=== PATIENT | male | born 1980 | race Caucasian/White ===

== ENCOUNTER 2017-07-23 10:47 | Emergency (ER) | payer OTHER ==
[~2017-07-23] VITALS: Ht 175.3 cm; Wt 82.4 kg
[~2017-07-23 10:47] MED LIST: ACET-1256 PO; IBUP-1050 PO
[2017-07-23 10:49] VITALS: TEMP 36.8; Ht 175.3 cm; Wt 82.4 kg
[2017-07-23] MEDS ORDERED: ONDANSETRON INJ 2 MG/ML 2 ML VIAL IV STA (11:12)
[2017-07-23] MEDS ORDERED: LIDOCAINE/EPINEPH/TETRACAINE 1 EA SYR EXT STA (11:12)
[2017-07-23] MEDS ORDERED: SODIUM CHLORIDE 0.9% 1000ML 1,000 ML IV STA (11:12)
[2017-07-23] MEDS ORDERED: ACETAMINOPHEN 500 MG TAB PO STA (11:12)
--- NOTE | 2017-07-23 11:28 | EMERGENCY ROOM VISIT NOTE ---
ED Visit Note First contact with patient: 11:03 CHIEF COMPLAINT: Head injury HISTORY OF PRESENT ILLNESS: This 36-year-old male sent to the emergency department with complaint of head injury that occurred at approximately 7:30 AM today. The patient states that he was doing a "kip up," in which he was lying on the floor quick motion to stand up onto his feet. The patient states when he went to jump up off the floor, he struck forehead on the coffee table. He reports positive loss of consciousness, unsure of duration. He notes a laceration above his right eye, bleeding controlled prior to arrival. He states that he tried to eat breakfast, and vomited twice. He has been nauseated , dizzy, and sweating. He has a bilateral frontal headache that he describes as a pressure, worse with lying down, better with sitting up, 7/10. He did not take any medications for his headache. He denies any neck pain, vision changes , confusion, difficulty with speech, weakness or numbness of the extremities, chest pain, shortness of breath. He denies any other associated injuries. REVIEW OF SYSTEMS: A complete 10 point review of systems was reviewed with the patient with pertinent positives and negatives as per history of present illness. All else were negative. PMH: The patient is healthy; there is no significant medical or surgical history. SOCIAL HISTORY: Patient lives at home. Non-smoker, no excessive alcohol use. He does chew snuff. PHYSICAL EXAM: CONSTITUTIONAL: No acute distress, but appears anxious and in pain. Diaphoretic. Alert and oriented X 4 with normal affect. HEENT: Normocephalic. Laceration of the right eyebrow with surrounding contused tissue, bleeding controlled. Tender to palpation, no skull depression or crepitus palpated. There are no deep structures such as tendons, nerves, blood vessels, or exposed bone noted within the laceration. PERRL, EOMI. TMs normal, no hemotympanum. Pharynx normal. NECK: Supple, full active range of motion without discomfort. RESPIRATORY: Clear to auscultation bilaterally with no wheezing, crackles, rhonchi or stridor. Equal expansion bilaterally. CARDIOVASCULAR: Regular rate and rhythm with no murmurs, rubs or gallops. Normal peripheral perfusion. No edema. GASTROINTESTINAL: Soft, nontender, nondistended. Bowel sounds present in all quadrants. MUSCULOSKELETAL: Full range of motion of all joints without discomfort. INTEGUMENTARY: No rash or other significant dermatologic conditions noted. NEUROLOGIC: Cranial nerves II-XII grossly intact. No focal neurologic deficits noted. Normal strength, normal sensation, normal speech, normal gait, normal finger nose finger testing and negative Romberg. IMAGING: CT SCAN OF THE BRAIN WITHOUT IV CONTRAST CLINICAL HISTORY: Head injury. COMPARISON STUDY: No priors. TECHNIQUE: Unenhanced axial CT scan of the brain is performed from the vertex to the skull base. A dose lowering technique was utilized adhering to the principles of ALARA. CT DOSE: 537.48 mGy.cm FINDINGS: Brain parenchyma: The brain parenchyma is normal in appearance. There is no hemorrhage, mass effect, or evidence of acute territorial ischemia by CT criteria. Davidson-white matter is preserved. A calcification is incidentally noted in the left frontal white matter matter. There is a 7 mm left-sided choroid fissure cyst. No extra-axial fluid collection is seen. Ventricles, sulci, cisterns: Normal in configuration. Intracranial vasculature: The visualized intracranial vasculature at the skull base is normal in appearance. Calvarium: There is no depressed calvarial fracture. Sinuses and mastoids: There is mucosal thickening within air-fluid level in the left maxillary antrum. The remaining visualized paranasal sinuses are clear. The mastoid air cells are well pneumatized. Orbits: There is questionable discontinuity of the left orbital floor. The right bony orbit appears intact. IMPRESSION: 1. No acute intracranial abnormality. 2. There is questionable discontinuity of the left orbital floor which is not well assessed on this study. Fluid is seen in the left maxillary antrum. Consider a CT scan of the facial bones if there is clinical concern for left orbital fracture. EMERGENCY DEPARTMENT COURSE: I examined the patient. Patient is alert and oriented, noted to be diaphoretic and appears to be in pain. Differential diagnosis includes laceration, abrasion, contusion, skull fracture, intracranial hemorrhage, concussion, among others. Basic labs were performed and are unremarkable. IV placed, IV fluids given for hydration and IV Zofran for nausea. Tylenol given for headache. A noncontrast CT scan of the head is negative for any acute abnormalities. There is a slight discontinuity noted of the left orbital floor, this is the opposite side of patient's injury today. Patient denies any recent injury to the left side of his face, any sinus congestion or sinus infection symptoms, or other concerns for possible injury to the left orbital floor. I discussed the option of doing an additional CT of the facial bones to further evaluate, the patient does not wish to do this, stating he is not concerned about this finding. I did instruct him on symptoms of concern and to follow-up with his PCP or in the emergency department for any of these, he verbalized understanding. Verbal consent was obtained to perform the procedure. The facial laceration was cleaned with Betadine and sterile saline and there was minimal bleeding. The laceration was anesthetized locally with 1% lidocaine with epinephrine, with good results. Once the wound was fully anesthetized, it was further explored and as described above. The edges of the laceration gape apart. Using 5-0 Vicryl, two subcuticular stitches were placed to approximate the edges of the wound. Once the wound edges were approximated, this was then secured with 3 layers of Dermabond glue with good wound approximation. The patient tolerated the procedure well. The patient was instructed on all discharge instructions and plan for follow-up. He reports he is much improved after Tylenol and Zofran. He is tolerating PO well. The patient was discharged home in stable condition. I discussed the patient with Dr. Dowling, who agrees with my assessment and plan. Current/Historical Medications No Active Prescriptions or Reported Meds Allergies Coded Allergies: No Known Allergies (Unverified , 07/23/17) Vital Signs Date Time Temp Pulse Resp B/P (MAP) Pulse Ox O2 Delivery O2 Flow Rate FiO2 07/23/17 14:00 92 18 147/107 97 07/23/17 12:50 88 18 139/79 99 Room Air 07/23/17 12:02 90 16 124/70 98 Room Air 07/23/17 10:49 36.8 100 16 143/79 100 Room Air Laboratory Results 07/23/17 11:35 Red Blood Count 4.72, Mean Corpuscular Volume 90.9, Mean Corpuscular Hemoglobin 31.6, Mean Corpuscular Hemoglobin Concent 34.7, Mean Platelet Volume 9.0, Neutrophils (%) (Auto) 64.1, Lymphocytes (%) (Auto) 23.5, Monocytes (%) (Auto) 9.9, Eosinophils (%) (Auto) 1.5, Basophils (%) (Auto) 0.6, Neutrophils # (Auto) 7.81, Lymphocytes # (Auto) 2.87, Monocytes # (Auto) 1.21, Eosinophils # (Auto) 0.18, Basophils # (Auto) 0.07 07/23/17 11:35 Test 07/23/17 11:35 White Blood Count 12.19 K/uL (4.8-10.8) Red Blood Count 4.72 M/uL (4.7-6.1) Hemoglobin 14.9 g/dL (14.0-18.0) Hematocrit 42.9 % (42-52) Mean Corpuscular Volume 90.9 fL (80-100) Mean Corpuscular Hemoglobin 31.6 pg (25-34) Mean Corpuscular Hemoglobin Concent 34.7 g/dl (32-36) Platelet Count 316 K/uL (130-400) Mean Platelet Volume 9.0 fL (7.4-10.4) Neutrophils (%) (Auto) 64.1 % Lymphocytes (%) (Auto) 23.5 % Monocytes (%) (Auto) 9.9 % Eosinophils (%) (Auto) 1.5 % Basophils (%) (Auto) 0.6 % Neutrophils # (Auto) 7.81 K/uL (1.4-6.5) Lymphocytes # (Auto) 2.87 K/uL (1.2-3.4) Monocytes # (Auto) 1.21 K/uL (0.11-0.59) Eosinophils # (Auto) 0.18 K/uL (0-0.5) Basophils # (Auto) 0.07 K/uL (0-0.2) RDW Standard Deviation 45.3 fL (36.4-46.3) RDW Coefficient of Variation 13.7 % (11.5-14.5) Immature Granulocyte % (Auto) 0.4 % Immature Granulocyte # (Auto) 0.05 K/uL (0.00-0.02) Anion Gap 6.0 mmol/L (3-11) Est Creatinine Clear Calc Drug Dose 127.0 ml/min Estimated GFR () 133.7 Estimated GFR (Non- 115.4 BUN/Creatinine Ratio 12.3 (10-20) Calcium Level 9.5 mg/dl (8.5-10.1) Medications Administered Medications (Trade) Dose Ordered Sig/Cruz Route Start Time Stop Time Status Last Admin Dose Admin Ondansetron HCl (Zofran Inj) 4 mg NOW STAT IV 07/23/17 11:12 07/23/17 11:16 DC 07/23/17 11:22 4 MG Sodium Chloride 1,000 ml @ 999 mls/hr Q1H1M STAT IV 07/23/17 11:12 07/23/17 12:12 DC 07/23/17 11:24 999 MLS/HR Acetaminophen (Tylenol Tab) 1,000 mg NOW STAT PO 07/23/17 11:12 07/23/17 11:16 DC 07/23/17 11:23 1,000 MG Tetracaine/ Epinephrine/ Lidocaine (L.e.t. Gel 4%/ 1:100/0.5%) 1 ea UD STAT EXT 07/23/17 11:12 07/23/17 11:16 DC 07/23/17 11:23 1 EA Departure Information Impression Primary Impression: Laceration of right eyebrow Additional Impression: Concussion Dispostion Home / Self-Care Condition GOOD Prescriptions No Active Prescriptions or Reported Meds Referrals No Doctor, Assigned (PCP) Patient Instructions ED Concussion, ED Laceration Facial Skin Glue, [employer] Additional Instructions Keep wound clean and dry. Do not apply any lotions, soaps, or ointments over the glued area, as this can cause the glue dissolve too early. The glue should follow off on its own in the next 5-7 days as the wound heals. You may apply ice to the area for swelling and pain. Ibuprofen 600 mg or Tylenol 1000 mg every 8 hrs as needed for pain. Keep covered when in sun until sutures removed then SPF 50 or higher for one year. Vitamin E oil if desired two weeks after suture removal for reduction of scar. You most likely have a mild concussion. It is important to observe both physical and cognitive rest while recovering from a concussion. Physical rest includes no significant physical activity or exertion, heavy lifting over 10 pounds, and increasing sleep and nap times throughout the day as needed. Cognitive rest includes taking breaks from prolonged screen time including TV, tablets, phone, or prolonged periods of talking on the telephone or reading. You should relax in a quiet, dark place for the rest of the day. Avoid any possible triggers including: cigarette smoke, caffeine, nicotine, chocolate, wine, beer, loud noises or music, or bright lights. Follow-up with your PCP in the next few days to be rechecked. Please seek immediate medical attention for any signs of infection (increasing redness, swelling, pus drainage, streaking up the arm, fever/chills). Please return to the ER for any worsening symptoms, including severe worsening headache, persistent vomiting, vision changes, confusion, numbness or weakness on one side of the body, balance issues or difficulty walking, or any other concerns. Problem Qualifiers Primary Impression: Laceration of right eyebrow Encounter type: initial encounter Qualified Codes: S01.111A - Laceration without foreign body of right eyelid and periocular area, initial encounter Additional Impression: Concussion Encounter type: initial encounter Loss of consciousness presence/duration: with LOC of 30 min or less Qualified Codes: S06.0X1A - Concussion with loss of consciousness of 30 minutes or less, initial encounter
[2017-07-23 11:52] LABS: BASO % 0.6 %; BASO ABS # 0.07 K/uL (0-0.2); COMPLETE YES; EOS % 1.5 %; HEMATOCRIT 42.9 % (42-52); IG% 0.4 %; LYMPH % 23.5 %; LYMPH ABS # 2.87 K/uL (1.2-3.4); MEAN CELL VOLUME 90.9 fL (80-100); MEAN CORPUSCULAR HEMOGLOBIN 31.6 pg (25-34); MEAN CORPUSCULAR HGB CONC 34.7 g/dl (32-36); MONO % 9.9 %; NEUT % 64.1 %; PLATELET COUNT 316 K/uL (130-400); RED BLOOD COUNT 4.72 M/uL (4.7-6.1); WHITE BLOOD COUNT 12.19 K/uL (4.8-10.8)
[2017-07-23 12:11] LABS: BUN/CREATININE RATIO 12.3 (10-20); CALCIUM 9.5 mg/dl (8.5-10.1); CREATININE 0.82 mg/dl (0.60-1.40)
--- NOTE | 2017-07-23 12:53 | DIAGNOSTIC IMAGING REPORT ---
CT SCAN OF THE BRAIN WITHOUT IV CONTRAST CLINICAL HISTORY: Head injury. COMPARISON STUDY: No priors. TECHNIQUE: Unenhanced axial CT scan of the brain is performed from the vertex to the skull base. A dose lowering technique was utilized adhering to the principles of ALARA. CT DOSE: 537.48 mGy.cm FINDINGS: Brain parenchyma: The brain parenchyma is normal in appearance. There is no hemorrhage, mass effect, or evidence of acute territorial ischemia by CT criteria. Davidson-white matter is preserved. A calcification is incidentally noted in the left frontal white matter matter. There is a 7 mm left-sided choroid fissure cyst. No extra-axial fluid collection is seen. Ventricles, sulci, cisterns: Normal in configuration. Intracranial vasculature: The visualized intracranial vasculature at the skull base is normal in appearance. Calvarium: There is no depressed calvarial fracture. Sinuses and mastoids: There is mucosal thickening within air-fluid level in the left maxillary antrum. The remaining visualized paranasal sinuses are clear. The mastoid air cells are well pneumatized. Orbits: There is questionable discontinuity of the left orbital floor. The right bony orbit appears intact. IMPRESSION: 1. No acute intracranial abnormality. 2. There is questionable discontinuity of the left orbital floor which is not well assessed on this study. Fluid is seen in the left maxillary antrum. Consider a CT scan of the facial bones if there is clinical concern for left orbital fracture. Electronically signed by: Ventura Vela M.D. 07/23/2017 12:51 PM Dictated Date/Time: 07/23/2017 12:44 PM
[2017-07-23] MEDS ORDERED: LIDO/EPINEPHRINE/SOD BICARB 20 ML VIAL INFIL ONE (13:10)
[2017-07-23] MEDS ORDERED: LIDOCAINE/EPINEPHRINE 1% 20 ML VIAL INFIL ONE (13:15)
[2017-07-23 14:00] VITALS: BP 147/107; PULSE 92; O2SAT 97
== END 2017-07-23 14:02 | disposition home or self-care (01) ==
LOC: C.EDB 10:50 → C.EDC 14:02
DX: S01.111A Laceration without foreign body of right eyelid and periocular area, initial encounter (principal); S06.0X1A Concussion with loss of consciousness of 30 minutes or less, initial encounter; W22.8XXA Striking against or struck by other objects, initial encounter; F17.200 Nicotine dependence, unspecified, uncomplicated

== ENCOUNTER 2023-05-15 14:50 | Inpatient (IN) ==
[2023-05-15] MEDS ORDERED: ACETAMINOPHEN 1,000 MG/100 ML VIAL IV STA (16:01)
[2023-05-15] MEDS ORDERED: KETOROLAC TROMETHAMINE 15 MG/ML VIAL IV STA ×2 (16:01→20:25)
[2023-05-15] MEDS ORDERED: AMPICILLIN/SULBACTAM SOD 3,000 MG in 0.9 % SODIUM CHLORIDE 100 ML IV STA (16:06)
[2023-05-15] MEDS ORDERED: SODIUM CHLORIDE 0.9% 1000ML 1,000 ML IV SCH ×2 (16:15→20:30)
--- NOTE | 2023-05-15 16:16 | Emergency Department Note ---
Impression & Plan Periorbital cellulitis, Abscess of left upper eyelid, Leukocytosis ED Provider Note NAME: RATNA NATARAJAN JR AGE: 42 SEX: M ARRIVES VIA: Walk-In INFORMANT: Patient ED PROVIDER(S): Warren Dowling MD CHIEF COMPLAINT: Eyelid infection PLAN: Disposition: Admit MEDICAL DECISION MAKING: The patient is a pleasant 42-year-old gentleman who denies any medical conditions who presents to the emergency department via walk-in, accompanied by his partner for evaluation of worsening left eye pain and swelling with yellow discharge that acutely worsened this morning in the setting of having progressive redness swelling and irritation since Wednesday. Patient [place] in [place] and went under tree branches where he may have been scratched though he is not certain. He reports intermittently applying a warm towel but symptoms have continued to worsen. He denies any fevers, cough, congestion, chest pain, shortness of breath, GI or symptoms. On arrival to the emergency department the patient is comfortable, afebrile with heart rate in the 90s, blood pressure 150s/90s and vital signs otherwise stable. Patient has notable/severe left upper eyelid swelling, erythema, warmth, induration and tenderness and extension of erythema circumferentially in the left periorbital region. There is a punctate track draining purulence. Gross examination of the patient's eye demonstrates scant injection without overt chemosis. Extraocular muscles are intact. WBC, 14.3K with neutrophil predominance. H/H and platelets within normal limits. Chemistry without metabolic acidosis. Electrolytes LFTs unremarkable. CT scan of the face was obtained and demonstrates findings consistent with a preseptal/periorbital cellulitis without orbital involvement. Case was discussed with ophthalmology on-call, Dr Rehman, who did not feel he could provide recommendations as he felt the patient's findings were outside of his scope. Case was discussed with Dr. Greer, [facility] surgery, who reviewed CT images. Appreciate consultation and recommendations and given cellulitis is limited to preseptal region agrees with plan for admission to medicine service for IV antibiotics. The patient's eyelid/abscess did spontaneously decompress and the patient felt and appeared improved. I did attempt additional decompression with 25-gauge needle through the existing tract and only minimal purulence was obtained but sent for culture. Treatment had been initiated emergency department with IV Unasyn. Case was discussed with Lacho Montoya hospitalist who will evaluate the patient for admission. Triage Nursing notes reviewed and agree them. Prior/outside medical records reviewed Vital Signs: reviewed Differential diagnosis: Conjunctivitis, trauma, corneal abrasion, hyphema, glaucoma, iritis, corneal ulcer, dendrite, CRAO, CRVO, vitreous detachment, retinal detachment, as well as other pathologies. ER treatment provided: See below. Diagnostics interpreted by me: ECG: Normal sinus rhythm, 67 bpm, no ectopy, no overt ST elevation or depression, QTc 4371, QRS 86. Cardiac Monitoring: An order for continuous cardiac monitoring was placed and demonstrated normal sinus rhythm, 67 bpm, no ectopy. Laboratory studies: See below Imaging studies: See below Consultation(s): Dr. Greer, [facility]. [facility] HPI: The patient is a pleasant 42-year-old gentleman who denies any medical conditions who presents to the emergency department via walk-in, accompanied by his partner for evaluation of worsening left eye pain and swelling with yellow discharge that acutely worsened this morning in the setting of having progressive redness swelling and irritation since Wednesday. Patient reports he was in [place] in a kayak and went under tree branches where he may have been scratched though he is not certain. He reports intermittently applying a warm towel but symptoms have continued to worsen. He denies any fevers, cough, congestion, chest pain, shortness of breath, GI or symptoms. ROS: See above HPI for pertinent positives & negatives. A total of 10 systems reviewed and were otherwise negative. VITALS:See Below PHYSICAL EXAMINATION: GENERAL: Awake, alert, uncomfortable-appearing, in no distress HENT: Normocephalic, atraumatic. Oropharynx unremarkable. EYES: Notable/severe left upper eyelid swelling, erythema, warmth, induration and tenderness and extension of erythema circumferentially in the left periorbital region. There is a punctate track draining purulence. Gross examination of the patient's eye demonstrates scant injection without overt chemosis. Extraocular muscles are intact. NECK: Supple. No nuchal rigidity. FROM. No JVD. RESPIRATORY: Clear to auscultation. CARDIAC: Regular rate, normal rhythm. Extremities warm and well perfused. Pulses equal. ABDOMEN: Soft, non-distended. No tenderness to palpation. No rebound or guarding. No masses. RECTAL: Deferred. MUSCULOSKELETAL: Chest examination reveals no tenderness. The back is sy mmetrical on inspection without obvious abnormality. There is no CVA tenderness to palpation. No joint edema. LOWER EXTREMITIES: Calves are equal size bilaterally and non-tender. No edema. No discoloration. NEURO: Normal sensorium. No sensory or motor deficits noted. SKIN: No rash or jaundice noted. Warren Dowling MD Past Med/Surg History Medical History No significant past medical history Family History Other Family history non-contributory Social History Smoking Status: Never smoker Preferred Language: Divehi Feels Safe at Home: Yes Allergies Allergies Allergy/AdvReac Type Severity Reaction Status Date / Time No Known Allergies Allergy Verified 05/15/23 15:58 Home Meds Home Medications Medication Instructions Recorded Confirmed No Known Home Medications 05/07/20 05/15/23 Results & Data (ED) Vital Signs Vital Signs - 24 hr 05/15/23 14:58 05/15/23 16:50 05/15/23 16:50 Temperature 37.0 C Temperature Source Temporal Artery Scan Pulse Rate 97 H Pulse Rate [Finger] 78 Respiratory Rate 20 20 Respiratory Effort / Characteristics Non-Labored Spontaneous Respiratory Depth Normal Blood Pressure 155/90 H Blood Pressure [Right Arm] 141/78 H Blood Pressure Mean 111 Blood Pressure Mean [Right Arm] 99 Pulse Oximetry 95 100 96 Oxygen Delivery Method Room Air Room Air Room Air Sepsis Recent Fever Within 48 Hours No Sepsis New/Unexplained Change in Mental Status N/A Sepsis Action Taken by Nursing No Action Required 05/15/23 20:52 Temperature Temperature Source Pulse Rate Pulse Rate [Finger] 85 Respiratory Rate 18 Respiratory Effort / Characteristics Respiratory Depth Normal Blood Pressure Blood Pressure [Right Arm] 138/101 H Blood Pressure Mean Blood Pressure Mean [Right Arm] 113 Pulse Oximetry 97 Oxygen Delivery Method Room Air Sepsis Recent Fever Within 48 Hours Sepsis New/Unexplained Change in Mental Status Sepsis Action Taken by Nursing Laboratory Data Attestation: I reviewed the patient's lab results. 05/15/23 16:19 05/15/23 16:19 Lab Results 05/15/23 05/15/23 Range/Units 16:19 16:19 WBC 14.32 H (4.8-10.8) K/ul RBC 5.35 (4.70-6.10) M/uL Hgb 16.4 (14.0-18.0) g/dl Hct 47.9 (42.0-52.0) % MCV 89.5 (80.0-100.0) fL MCH 30.7 (25.0-34.0) pg MCHC 34.2 (32.0-36.0) g/dL RDW Std Deviation 51.8 H (36.4-46.3) fL RDW Coeff of Mariano 15.9 H (11.5-14.5) % Plt Count 398 (130-400) K/uL MPV 9.3 L (9.4-12.4) fL Immature Gran % (Auto) 1.0 % Neut % (Auto) 72.5 % Lymph % (Auto) 14.7 % B[place] % (Auto) 9.4 % Eos % (Auto) 1.7 % Baso % (Auto) 0.7 % Neut # (Auto) 10.38 H (1.40-6.50) K/uL Lymph # (Auto) 2.10 (1.2-3.4) K/uL Borden # (Auto) 1.34 H (0.11-0.59) K/uL Eos # (Auto) 0.25 (0-0.50) K/uL Baso # (Auto) 0.10 (0-0.2) K/uL Immature Gran # (Auto) 0.15 (0.01-0.20) K/uL Sodium 138 (136-145) mmol/L Potassium 4.4 (3.5-5.1) mmol/L Chloride 106 (98-107) mmol/L Carbon Dioxide 26 (21-32) mmol/L Anion Gap 6 (3-11) BUN 13 (6-23) mg/dl Creatinine 0.98 (0.6-1.4) mg/dl Est Cr Clr Drug Dosing 129.1 ml/min Est GFR ( Amer) 111.3 ml/min Est GFR (Non-Af Amer) 96.1 ml/min BUN/Creatinine Ratio 13.3 (10-20) Glucose 116 H (70-99(Fasting)) mg/dl Calcium 9.4 (8.6-10.3) mg/dl Total Bilirubin 0.4 (0.2-1.0) mg/dl AST 37 (13-39) U/L ALT 24 (7-52) U/L Alkaline Phosphatase 37 (34-104) U/L Total Protein 6.8 (6.0-8.3) gm/dl Albumin 3.6 (3.4-5.0) gm/dl Globulin 3.2 (2.5-4.0) gm/dl Albumin/Globulin Ratio 1.1 (0.9-2) Administered Medications Sodium Chloride (Nss 1000ml) 1,000 mls @ 100 mls/hr IV .Q10H ONE Stop: 05/16/23 06:38 Last Admin: 05/15/23 20:48 Dose: 100 mls/hr Documented By: JULIEN Discontinued Medications Sodium Chloride (Nss 1000ml) 1,000 mls @ 999 mls/hr IV .Q1H1M LION Stop: 05/15/23 17:15 Last Infusion: 05/15/23 17:36 Dose: 0 mls/hr Documented By: Admin: 05/15/23 16:17 Dose: 999 mls/hr Documented By: KT Acetaminophen (Ofirmev) 1,000 mg in 100 mls @ 400 mls/hr IV NOW STA Stop: 05/15/23 16:15 Last Infusion: 05/15/23 16:36 Dose: 0 mls/hr Documented By: Admin: 05/15/23 16:18 Dose: 400 mls/hr Documented By: KT Ampicillin Sodium/Sulbactam Sodium 3,000 mg/ Sodium Chloride 108 mls @ 200 mls/hr IV NOW STA; Protocol Stop: 05/15/23 16:38 Last Infusion: 05/15/23 17:05 Dose: 0 mls/hr Documented By: Admin: 05/15/23 16:36 Dose: 200 mls/hr Documented By: KT Ioversol (Optiray 320 100ml) 88 ml IV ONCE ONE Stop: 05/15/23 17:04 Last Admin: 05/15/23 17:03 Dose: 88 ml Documented By: RAMONITA Ketorolac Tromethamine (Ketorolac Tromethamine 15 Mg/Ml Vial) 15 mg IV NOW STA Stop: 05/15/23 16:02 Last Admin: 05/15/23 16:17 Dose: 15 mg Documented By: KT Ketorolac Tromethamine (Ketorolac Tromethamine 15 Mg/Ml Vial) 15 mg IV NOW STA Stop: 05/15/23 20:26 Last Admin: 05/15/23 20:48 Dose: 15 mg Documented By: HH Morphine Sulfate (Morphine Sulfate 4 Mg/Ml 1 Ml Carp\Vial) Confirm Administered Dose 4 mg .ROUTE .STK-MED ONE Stop: 05/15/23 20:12 Last Admin: 05/15/23 20:15 Dose: Not Given Documented By: ARS Morphine Sulfate (Morphine Sulfate 4 Mg/Ml 1 Ml Carp\Vial) 4 mg IV NOW STA Stop: 05/15/23 20:16 Last Admin: 05/15/23 20:16 Dose: 4 mg Documented By: HUGO Trimethoprim/Sulfamethoxazole (Sulfamethoxazole/Trimethoprim Ds 800/160mg Tab) 1 tab PO NOW ONE Stop: 05/15/23 20:38 Last Admin: 05/15/23 20:48 Dose: 1 tab Documented By: JULIEN Imaging Data Radiologist's Impression: Face CT 05/15/23 16:01 CT SCAN OF THE FACIAL BONES WITH IV CONTRAST CLINICAL HISTORY: Left left eye infection. Blepharitis. COMPARISON STUDY: No priors. TECHNIQUE: High-resolution CT scan of the facial bones is performed following the IV administration of 80 cc of Optiray 320. Images are reviewed in the axial, sagittal, and coronal planes. IV contrast was administered without complication. A dose lowering technique was utilized adhering to the principles of ALARA. FINDINGS: The skeletal structures are well mineralized. There is no evidence of facial bone fracture. The bony orbits are intact and the orbital contents are within normal limits. The zygomatic arches, nasal bones, and pterygoid plates are preserved. The maxilla and mandible are intact. There are no layering blood products within the paranasal sinuses. There is near-complete opacification of the left maxillary antrum. There is moderate to advanced mucosal thickening within the left ethmoid sinuses. Mild mucosal thickening is noted in the right maxillary antrum, the right ethmoid sinuses, the frontal sinuses, and the sphenoid sinuses. The left ostiomeatal complex is occluded. The right ostiomeatal complex is significantly narrowed by mucosal thickening. The mastoid air cells are well pneumatized. The visualized calvarium and upper cervical spine are maintained. Partially imaged brain parenchyma is within normal limits. The developmental venous anomaly is incidentally noted in the left frontal lobe. A tiny metallic foreign body seen at the dermal surface in the soft tissues the right chin on axial image #139. There is left periorbital soft tissue edema consistent with cellulitis. There is also mild mild left premalar and supraorbital soft tissue edema. A small phlegmon/developing abscess is suggested in the region of the left palpebra on image #108. This measures 1.2 x 0.9 cm. IMPRESSION: 1. There is evidence of left orbital/periorbital cellulitis as above. 2. There is a 1.2 cm left palpebral phlegmon/developing abscess. 3. Orbital contents are normal as imaged. 4. Pansinus disease as above, greatest in the left maxillary antrum. 5. No acute facial bone abnormality is seen. 6. A tiny metallic foreign body is seen at the dermal surface in the soft tissues of the right chin. ACT 112: Negative or not required by law. Electronically signed by: Ventura Vela M.D. 05/15/2023 6:27 PM Discharge Plan Visit Data Chief Complaint: Eye Pain Stated Complaint: LT EYE SWOLLEN AND RED ED Provider: Warren Dowling Discharge Problem: Periorbital cellulitis, Abscess of left upper eyelid, Leukocytosis Forms Stand Alone Forms: My [facility] [place] [facility] [place] Prescriptions Prescriptions: No Action No Known Home Medications Referrals Referrals: PCP,NO [Physician] -
[2023-05-15 16:38] LABS: Basophils % (auto) 0.7 %; Eosinophils # (auto) 0.25 K/uL (0-0.50); Eosinophils % (auto) 1.7 %; Hematocrit (blood only) 47.9 % (42.0-52.0); Hemoglobin 16.4 g/dl (14.0-18.0); Immature Granulocytes # (auto) 0.15 K/uL (0.01-0.20); Lymphocytes % (auto) 14.7 %; Mean Corpuscular Hemoglobin 30.7 pg (25.0-34.0); Mean Corpuscular Hgb Conc 34.2 g/dL (32.0-36.0); Mean Corpuscular Volume 89.5 fL (80.0-100.0); Mean Platelet Volume 9.3 fL (9.4-12.4); Monocytes # (auto) 1.34 K/uL (0.11-0.59); Monocytes % (auto) 9.4 %; Neutrophils # (auto) 10.38 K/uL (1.40-6.50); Neutrophils % (auto) 72.5 %; Platelet Count 398 K/uL (130-400); RDW Coefficient of Variation 15.9 % (11.5-14.5); RDW Standard Deviation 51.8 fL (36.4-46.3); Red Blood Count 5.35 M/uL (4.70-6.10); White Blood Count 14.32 K/ul (4.8-10.8)
[2023-05-15 16:51] LABS: Albumin Globulin Ratio 1.1 (0.9-2); Albumin Level 3.6 gm/dl (3.4-5.0); BUN Creatinine Ratio 13.3 (10-20); Bilirubin,Total 0.4 mg/dl (0.2-1.0); Calcium 9.4 mg/dl (8.6-10.3); Creatinine Clr Calc Pharmacy 129.1 ml/min; Est GFR (African American) 111.3 ml/min; Est GFR (Non-African American) 96.1 ml/min; Globulin 3.2 gm/dl (2.5-4.0); Potassium 4.4 mmol/L (3.5-5.1); Total Protein 6.8 gm/dl (6.0-8.3)
[2023-05-15] MEDS ORDERED: OPTIRAY 320 100ml IV ONE (17:03)
--- NOTE | 2023-05-15 18:29 | CT Scan Report ---
CT SCAN OF THE FACIAL BONES WITH IV CONTRAST CLINICAL HISTORY: Left left eye infection. Blepharitis. COMPARISON STUDY: No priors. TECHNIQUE: High-resolution CT scan of the facial bones is performed following the IV administration of 80 cc of Optiray 320. Images are reviewed in the axial, sagittal, and coronal planes. IV contrast was administered without complication. A dose lowering technique was utilized adhering to the princi ples of ALARA. FINDINGS: The skeletal structures are well mineralized. There is no evidence of facial bone fracture. The bony orbits are intact and the orbital contents are within normal limits. The zygomatic arches, nasal bones, and pterygoid plates are preserved. The maxilla and mandible are intact. There are no la yering blood products within the paranasal sinuses. There is near-complete opacification of the left maxillary antrum. There is moderate to advanced mucosal thickening within the left ethmoid sinuses. M ild mucosal thickening is noted in the right maxillary antrum, the right ethmoid sinuses, the frontal sinuses, and the sphenoid sinuses. The left ostiomeatal complex is occluded. The right ostiomeatal c omplex is significantly narrowed by mucosal thickening. The mastoid air cells are well pneumatized. T he visualized calvarium and upper cervical spine are maintained. Partially imaged brain parenchyma is within normal limits. The developmental venous anomaly is incidentally noted in the left frontal lob e. A tiny metallic foreign body seen at the dermal surface in the soft tissues the right chin on axia l image #139. There is left periorbital soft tissue edema consistent with cellulitis. There is also m ild mild left premalar and supraorbital soft tissue edema. A small phlegmon/developing abscess is sug gested in the region of the left palpebra on image #108. This measures 1.2 x 0.9 cm. IMPRESSION: 1. There is evidence of left orbital/periorbital cellulitis as above. 2. There is a 1.2 cm left palpebral phlegmon/developing abscess. 3. Orbital contents are normal as imaged. 4. Pansinus disease as above, greatest in the left maxillary antrum. 5. No acute facial bone abnormality is seen. 6. A tiny metallic foreign body is seen at the dermal surface in the soft tissues of the right chin. ACT 112: Negative or not required by law. Electronically signed by: Ventura Vela M.D. 05/15/2023 6:27 PM
[2023-05-15] MEDS ORDERED: MoRPHine SULFATE 4 MG/ML 1 ML CARP\\VIAL ONE (20:11)
[2023-05-15] MEDS ORDERED: MoRPHine SULFATE 4 MG/ML 1 ML CARP\\VIAL IV STA (20:15)
[2023-05-15] MEDS ORDERED: SULFAMETHOXAZOLE/TRIMETHOPRIM DS 800/160MG TAB PO ONE (20:37)
--- NOTE | 2023-05-15 20:38 | History & Physical Report ---
Date of Service May 15, 2023 Assessment & Plan (1) Periorbital cellulitis: Plan: With history of trauma No sepsis for now GERD, stable off maintenance medications hyperglycemia rule out DM GMF CS, Vancomycin, Cefepime Maxillofacial surgery consult RE left periorbital cellulitis (ER provider already in touch with Dr. Greer.) N.p.o. after midnight until patient seen by OMFS in a.m. anticipation of procedure Check hemoglobin A1c DVT prophylaxis. SCDs Re: Possible procedure Recommend pharmacologic anticoagulation with Lovenox 40 mg subcutaneous daily once bleeding risk is deemed to be minimal and negligible pending OMFS evaluation. Full code Text document was generated using [employer] voice recognition software. It may contain grammatical or spelling errors. Kindly contact undersigned for clarification of any documentation item in question. History of Present Illness Chief Complaint: Left upper eyelid swelling Primary Care Provider: Chris Willoughby MD History obtained from patient, family, and records. Medical history significant for GERD, chronic back pain. Last confinement 2013 for exudative tonsillopharyngitis status post antibiotic Rx. 5 days ago, patient noted left upper eyelid swelling. Possible injury after getting into some bushes while kayaking with girlfriend. Progressive painful left upper eyelid swelling with purulent drainage noted at home. Vision problems from not being able to fully open left eye. No headache, no chest pain, no SOB. IV Unasyn administered at the ER. Medical History as above Surgical History : Left knee surgery Family History : No DM, no hypertension Personal/Social history : Non-smoker, occasional EtOH intake, tree doctor Allergies Allergy/AdvReac Type Severity Reaction Status Date / Time No Known Allergies Allergy Verified 05/15/23 15:58 Home Medications Medication Instructions Recorded Confirmed Type No Known Home Medications 05/07/20 05/15/23 History Past Med/Surg History Medical History No significant past medical history Family History Other Family history non-contributory Social History Smoking Status: Never smoker Second Hand Exposure: No; Do You Dip or Chew Tobacco: Yes; Tobacco Cessation Education Requested by Patient: No Hx Alcohol Use: Yes Alcohol type: beer Hx Substance Use: Yes Last Used Substance: Hours (ago) Preferred Language: Setswana Communication Ability: Effective 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 Beliefs That Will Affect Care: None Current Living Situation: Other Current Living Situation Comment: Friend Feels Safe at Home: Yes Safety Concerns: Feels Safe At This Time Assistive Devices: None Review of Systems Review of Systems: As per HPI, all other systems reviewed and negative Physical Exam Physical Exam: GENERAL: Comfortable, pleasant, morbidly obese, no respiratory distress SKIN: Normal color, warm HEENT: [place] palpebral conjunctivae, L ptosis secondary to tender left upper eyelid swelling, moist buccal mucosa NECK : Supple, short neck, no tenderness CHEST : CTA, no tenderness HEART : RRR, no obvious murmurs ABDOMEN: Some distention, nontender EXTREMITIES : No LE swelling/tenderness, no other conspicuous deformities noted NEUROLOGIC : Coherent, no facial asymmetry, no other gross focality Results & Data Results & Data Vital Signs (Past 12 Hours) Vital Signs Temp Pulse Pulse Resp BP BP Pulse Ox 05/15/23 16:50 78 20 141/78 H 96 05/15/23 16:50 100 05/15/23 14:58 37.0 C 97 H 20 155/90 H 95 O2 Del Method 05/15/23 16:50 Room Air 05/15/23 16:50 Room Air 05/15/23 14:58 Room Air Laboratory Results Laboratory Results WBC 14.32 K/ul (4.8-10.8) H 05/15/23 16:19 RBC 5.35 M/uL (4.70-6.10) 05/15/23 16:19 Hgb 16.4 g/dl (14.0-18.0) 05/15/23 16:19 Hct 47.9 % (42.0-52.0) 05/15/23 16:19 MCV 89.5 fL (80.0-100.0) 05/15/23 16:19 MCH 30.7 pg (25.0-34.0) 05/15/23 16:19 MCHC 34.2 g/dL (32.0-36.0) 05/15/23 16:19 RDW Std Deviation 51.8 fL (36.4-46.3) H 05/15/23 16:19 RDW Coeff of Mariano 15.9 % (11.5-14.5) H 05/15/23 16:19 Plt Count 398 K/uL (130-400) 05/15/23 16:19 MPV 9.3 fL (9.4-12.4) L 05/15/23 16:19 Immature Gran % (Auto) 1.0 % 05/15/23 16:19 Neut % (Auto) 72.5 % 05/15/23 16:19 Lymph % (Auto) 14.7 % 05/15/23 16:19 Walton % (Auto) 9.4 % 05/15/23 16:19 Eos % (Auto) 1.7 % 05/15/23 16:19 Baso % (Auto) 0.7 % 05/15/23 16:19 Neut # (Auto) 10.38 K/uL (1.40-6.50) H 05/15/23 16:19 Lymph # (Auto) 2.10 K/uL (1.2-3.4) 05/15/23 16:19 Walton # (Auto) 1.34 K/uL (0.11-0.59) H 05/15/23 16:19 Eos # (Auto) 0.25 K/uL (0-0.50) 05/15/23 16:19 Baso # (Auto) 0.10 K/uL (0-0.2) 05/15/23 16:19 Immature Gran # (Auto) 0.15 K/uL (0.01-0.20) 05/15/23 16:19 Sodium 138 mmol/L (136-145) 05/15/23 16:19 Potassium 4.4 mmol/L (3.5-5.1) 05/15/23 16:19 Chloride 106 mmol/L (98-107) 05/15/23 16:19 Carbon Dioxide 26 mmol/L (21-32) 05/15/23 16:19 Anion Gap 6 (3-11) 05/15/23 16:19 BUN 13 mg/dl (6-23) 05/15/23 16:19 Creatinine 0.98 mg/dl (0.6-1.4) 05/15/23 16:19 Est Cr Clr Drug Dosing 129.1 ml/min 05/15/23 16:19 Est GFR ( Amer) 111.3 ml/min 05/15/23 16:19 Est GFR (Non-Af Amer) 96.1 ml/min 05/15/23 16:19 BUN/Creatinine Ratio 13.3 (10-20) 05/15/23 16:19 Glucose 116 mg/dl (70-99(Fasting)) H 05/15/23 16:19 Calcium 9.4 mg/dl (8.6-10.3) 05/15/23 16:19 Total Bilirubin 0.4 mg/dl (0.2-1.0) 05/15/23 16:19 AST 37 U/L (13-39) 05/15/23 16:19 ALT 24 U/L (7-52) 05/15/23 16:19 Alkaline Phosphatase 37 U/L (34-104) 05/15/23 16:19 Total Protein 6.8 gm/dl (6.0-8.3) 05/15/23 16:19 Albumin 3.6 gm/dl (3.4-5.0) 05/15/23 16:19 Globulin 3.2 gm/dl (2.5-4.0) 05/15/23 16:19 Albumin/Globulin Ratio 1.1 (0.9-2) 05/15/23 16:[address] 05/15/23 16:01 CT SCAN OF THE FACIAL BONES WITH IV CONTRAST CLINICAL HISTORY: Left left eye infection. Blepharitis. COMPARISON STUDY: No priors. TECHNIQUE: High-resolution CT scan of the facial bones is performed following the IV administration of 80 cc of Optiray 320. Images are reviewed in the axial, sagittal, and coronal planes. IV contrast was administered without complication. A dose lowering technique was utilized adhering to the principles of ALARA. FINDINGS: The skeletal structures are well mineralized. There is no evidence of facial bone fracture. The bony orbits are intact and the orbital contents are within normal limits. The zygomatic arches, nasal bones, and pterygoid plates are preserved. The maxilla and mandible are intact. There are no layering blood products within the paranasal sinuses. There is near-complete opacification of the left maxillary antrum. There is moderate to advanced mucosal thickening within the left ethmoid sinuses. Mild mucosal thickening is noted in the right maxillary antrum, the right ethmoid sinuses, the frontal sinuses, and the sphenoid sinuses. The left ostiomeatal complex is occluded. The right ostiomeatal complex is significantly narrowed by mucosal thickening. The mastoid air cells are well pneumatized. The visualized calvarium and upper cervical spine are maintained. Partially imaged brain parenchyma is within normal limits. The developmental venous anomaly is incidentally noted in the left frontal lobe. A tiny metallic foreign body seen at the dermal surface in the soft tissues the right chin on axial image #139. There is left periorbital soft tissue edema consistent with cellulitis. There is also mild mild left premalar and supraorbital soft tissue edema. A small phlegmon/developing abscess is suggested in the region of the left palpebra on image #108. This measures 1.2 x 0.9 cm. IMPRESSION: 1. There is evidence of left orbital/periorbital cellulitis as above. 2. There is a 1.2 cm left palpebral phlegmon/developing abscess. 3. Orbital contents are normal as imaged. 4. Pansinus disease as above, greatest in the left maxillary antrum. 5. No acute facial bone abnormality is seen. 6. A tiny metallic foreign body is seen at the dermal surface in the soft tissues of the right chin. ACT 112: Negative or not required by law. Electronically signed by: Ventura Vela M.D. 05/15/2023 6:27 PM
[2023-05-15] MEDS ORDERED: SODIUM CHLORIDE 0.9% 1000ML 1,000 ML IV ONE (20:39)
[2023-05-15] MEDS ORDERED: KETOROLAC TROMETHAMINE 15 MG/ML VIAL IV PRN (20:43)
[2023-05-15] MEDS ORDERED: traMADol HCL 50 MG TABLET PO PRN (20:43)
[2023-05-15] MEDS ORDERED: PROMETHAZINE HCL 12.5 MG in SODIUM CHLORIDE 0.9% 50 ML IV PRN (20:43)
[2023-05-15] MEDS ORDERED: ACETAMINOPHEN 325 MG TAB PO PRN ×2 (20:43→22:21)
[2023-05-15] MEDS ORDERED: LORazepam 0.5 MG TAB PO PRN (20:43)
[2023-05-15 21:27] LABS: Estimated Average Glucose 94 mg/dl; Hemoglobin A1C 4.9 % (4.5-5.6)
[2023-05-15] MEDS ORDERED: AMPICILLIN/SULBACTAM SOD 3,000 MG in 0.9 % SODIUM CHLORIDE 100 ML IV SCH (23:00)
[2023-05-16] MEDS ORDERED: VANCOMYCIN CONSULT ACTIVE PRN (00:51)
[2023-05-16] MEDS ORDERED: VANCOMYCIN HCL 2,500 MG in SODIUM CHLORIDE 0.9% 500 ML IV ONE (01:00)
[2023-05-16] MEDS ORDERED: VANCOMYCIN HCL 2,750 MG in SODIUM CHLORIDE 0.9% 500 ML IV ONE (01:00)
[2023-05-16] MEDS: CEFEPIME 2,000 MG in SYRINGE 0 ML IV SCH ×2 (01:08→07:48)
--- NOTE | 2023-05-16 08:46 | Oral/Maxillofacial Consult ---
Date of Consultation May 16, 2023 Assessment & Plan (1) Periorbital cellulitis: (2) Abscess of left upper eyelid: History of Present Illness Attending Physician: Pradip Lizarraga MD History of Present Illness Medical history significant for GERD, chronic back pain. Progressive painful left upper eyelid swelling with purulent drainage noted at home. IV Unasyn administered at the ER. Developed a left preseptal abscessed upper lid. Started after he as scratched while boating a few days ago. 5 days ago, patient noted left upper eyelid swelling. Possible injury after getting into some bushes while kayaking with girlfriend. Yesterday eye upper eyelid started to drain slightly and he went to ED. CT scan shows pre-sepal lesion Some spontaneous drainage but today still drainage upon palpation. Ideally a wider drainage is needed. No issues with vision, good ROM. CT SCAN OF THE FACIAL BONES WITH IV CONTRAST CLINICAL HISTORY: Left left eye infection. Blepharitis. FINDINGS: The skeletal structures are well mineralized. There is no evidence of facial bone fracture. The bony orbits are intact and the orbital contents are within normal limits. The zygomatic arches, nasal bones, and pterygoid plates are preserved. The maxilla and mandible are intact. There are no layering blood products within the paranasal sinuses. There is near-complete opacification of the left maxillary antrum. There is moderate to advanced mucosal thickening within the left ethmoid sinuses. Mild mucosal thickening is noted in the right maxillary antrum, the right ethmoid sinuses, the frontal sinuses, and the sphenoid sinuses. The left ostiomeatal complex is occluded. The right ostiomeatal complex is significantly narrowed by mucosal thickening. The mastoid air cells are well pneumatized. The visualized calvarium and upper cervical spine are maintained. Partially imaged brain parenchyma is within normal limits. The developmental venous anomaly is incidentally noted in the left frontal lobe. A tiny metallic foreign body seen at the dermal surface in the soft tissues the right chin on axial image #139 There is left periorbital soft tissue edema consistent with cellulitis. There is also mild mild left premalar and supraorbital soft tissue edema. A small phlegmon/developing abscess is suggested in the region of the left palpebra on image #108. This measures 1.2 x 0.9 cm. IMPRESSION: 1. There is evidence of left orbital/periorbital cellulitis as above. 2. There is a 1.2 cm left palpebral phlegmon/developing abscess. 3. Orbital contents are normal as imaged. 4. Pansinus disease as above, greatest in the left maxillary antrum. 5. No acute facial bone abnormality is seen. 6. A tiny metallic foreign body is seen at the dermal surface in the soft tissues of the right chin. Plan OR for I&D, warm compresses and then OK for discharge on oral antibiotics. I reviewed the procedure of upper eyelid I&D pain, infection, bleeding, swelling, need for follow up, revision, persistent swelling of upper lip secondary to scaring or lymph drainage. Consent signed All questions answered. OK for procedure today Allergies Allergy/AdvReac Type Severity Reaction Status Date / Time No Known Allergies Allergy Verified 05/15/23 15:58 Home Medications Medication Instructions Recorded Confirmed Type No Known Home Medications 05/07/20 05/15/23 History Patient History Medical History No significant past medical history Family History Other Family history non-contributory Social History Smoking Status: Never smoker Second Hand Exposure: No; Do You Dip or Chew Tobacco: Yes; Tobacco Cessation Education Requested by Patient: No Hx Alcohol Use: Yes Alcohol type: beer Hx Substance Use: Yes Last Used Substance: Hours (ago) Preferred Language: Turkish Communication Ability: Effective Systems Testing Laboratory Technician Required: No Beliefs That Will Affect Care: None Current Living Situation: Other Current Living Situation Comment: Friend Feels Safe at Home: Yes Safety Concerns: Feels Safe At This Time Assistive Devices: None Review of Systems Eyes: + eye pain gross swelling upper left lid, drainage noted, conjunctive inflamed. Physical Exam Constitutional: Physical Exam Constitutional WD/WN, vitals as above Eyes PERRL, conjunctivae red and swollen left side, right normal, preseptal swelling, pus extrudes upon palpation I&D needed to open up space for further drainage. Neck trachea midline, no thyromegaly Respiratory normal respiratory effort, lungs clear to auscultation Auscultation: lungs clear to auscultation bilaterally Cardiovascular RRR, no murmur, no edema Rate/Rhythm: regular rate and regular rhythm Skin no rashes, warm and dry, noted redness and swelling upper left lid and supraorbital area Neurologic PERRL, EOMI, accommodation nl, no face palsy, no dysarthria Cranial Nerves: sense of smell intact, PERRL, normal accommodation, EOM intact bilaterally, normal facial strength, tongue midline, normal gag reflex, normal hearing, able to rotate head bilaterally, able to elevate shoulders bilaterally, no nystagmus and symmetric palate elevation Psychiatric A+Ox3, euthymic affect Orientation: cooperative Lymphatic no cervical or axillary lymphadenopathy Results & Data Vital Signs (Past 12 Hours) Vital Signs Temp Pulse Resp BP Pulse Ox O2 Del Method 05/16/23 07:45 36.8 C 72 16 169/80 H 97 Room Air 05/15/23 22:20 36.7 C 77 18 132/75 98 Room Air 05/15/23 20:52 85 18 138/101 H 97 Room Air PG Care Time/CCT Total # of Minutes Spent Total Time Spent with Patient: Total time spent is greater than 50% in coordination of care (as documented) at patient's floor/unit and/or counseling patient: Coding Level of Care Code 29080 IN/OBS CONSULT LVL 2,35M Diagnoses Periorbital cellulitis L03.213 Abscess of left upper eyelid H00.034
[2023-05-16] MEDS ORDERED: SULFAMETHOXAZOLE/TRIMETHOPRIM DS 800/160MG TAB PO SCH (09:00)
[2023-05-16] MEDS ORDERED: ENOXAPARIN INJ 40 MG/0.4 ML SYR SQ SCH (09:00)
--- NOTE | 2023-05-16 11:07 | Ophthalmology Consultation ---
Date of Consultation May 16, 2023 Assessment & Plan (1) Periorbital cellulitis: 1. Left upper eyelid preseptal cellulitis and abscess: The patient was seen by Dr. Greer who plans to take the patient to the operating room later today for a more definitive incision and drainage procedure. In the ED, he received IV ampicillin/sulbactam and vancomycin as well as oral trimethoprim/sulfamethoxazole. He is currently getting IV vancomycin and cefepime while on the floor which is appropriate at this point. His eye exam including dilation shows no evidence of orbital involvement at this time. I do agree with Dr. Greer's plan for surgical debridement. He does not need any prescription eye medications at this time, but if he does have some eye irritation he can use some [id number] artificial tears. I would be happy to follow him as an outpatient once he is discharged. (2) Abscess of left upper eyelid: as above History of Present Illness Reason for Consultation: Left upper eyelid swelling with concern for orbital cellulitis Requesting Physician: Pradip Lizarraga MD Attending Physician: Pradip Lizarraga MD History of Present Illness This is a 42-year-old male with a past medical history of GERD and chronic back pain who presented yesterday to the [facility] emergency department with a 5 to 6-day history of worsening swelling and pain of the left upper eyelid. He is unsure but he thinks his symptoms may have started after he went kayaking last weekend and may have inadvertently scratched it going into some bushes. Over this past week, the eyelid has felt irritated and the eye itself has had irritation as well. He was hoping it would get better but he woke up yesterday and the eyelid was almost completely swollen shut and he had significant redness and discomfort and so decided to come to the ED. In the ED, it actually spontaneously started draining and the ER doctor tried to do a stab incision with a needle to get more material out but was unsuccessful. He was then admitted to the hospital and started on the IV antibiotics. He was seen by Dr. Greer this morning who is planning to take him to the operating room for incision and drainage of abscess later today.. Allergies Allergy/AdvReac Type Severity Reaction Status Date / Time No Known Allergies Allergy Verified 05/15/23 15:58 Home Medications Medication Instructions Recorded Confirmed Type No Known Home Medications 05/07/20 05/15/23 History Patient History Medical History No significant past medical history Family History Other Family history non-contributory Social History Smoking Status: Never smoker Second Hand Exposure: No; Do You Dip or Chew Tobacco: Yes; Tobacco Cessation Education Requested by Patient: No Hx Alcohol Use: Yes Alcohol type: beer Hx Substance Use: Yes Last Used Substance: Hours (ago) Preferred Language: German Communication Ability: Effective Comparator Operator Required: No Beliefs That Will Affect Care: None Current Living Situation: Other Current Living Situation Comment: Friend Feels Safe at Home: Yes Safety Concerns: Feels Safe At This Time Assistive Devices: None Physical Exam Physical Exam: Visual acuity: 20/20 bilaterally without correction Intraocular pressures: 17 in the right eye and 21 in the left eye by tonopen Pupils: 4 mm reactive down to 3 mm bilaterally Confrontational Visual Abbott: Full OU Extraocular movements: Full OU Slit lamp exam: Lids/Lashes: Normal on the right. On the left there is erythema and edema of the left upper lid from the margin up into the brow with abscess/fullness near the lid margin with overlying scab. There is also a mix of yellowish mucoid discharge along the eyelashes mostly temporal of the left upper lid and left lower lid Conjunctiva and sclera: White and quiet on the right. Trace bulbar injection on the left. There is a moderate papillary reaction on the palpebral conjunctival surface on the left upper eyelid. Cornea: Clear bilaterally Anterior Chamber: Deep and formed bilaterally Iris: Normal Lens: Clear OU Vitreous: Clear OU Optic nerves: Cup-to-disc ratio of 0.2 bilaterally Macula: Normal OU Vessels: Normal OU Peripheral retina: Normal OU Results & Data Vital Signs (Past 12 Hours) Vital Signs Temp Pulse Resp BP Pulse Ox O2 Del Method 05/16/23 07:45 36.8 C 72 16 169/80 H 97 Room Air Diagnostic Findings CT of the facial bones was reviewed showing left periorbital soft tissue edema consistent with cellulitis. There is also a small phlegmon/developing abscess in the left palpebral region measuring 1.2 x 0.9 cm.
[2023-05-16] MEDS ORDERED: VANCOMYCIN HCL 1,250 MG in SODIUM CHLORIDE 0.9% 250 ML IV SCH (12:00)
--- NOTE | 2023-05-16 12:07 | Hospitalist Progress Note ---
Date of Service May 16, 2023 Assessment & Plan (1) Periorbital cellulitis: Plan: Periorbital cellulitis Left upper eyelid preseptal cellulitis with abscess Likely secondary to trauma Facial right chin metallic foreign body --Face CT:There is evidence of left orbital/periorbital cellulitis as above. There is a 1.2 cm left palpebral phlegmon/developing abscess. Orbital contents are normal as imaged. Pansinus disease as above, greatest in the left maxillary antrum. No acute facial bone abnormality is seen. A tiny metallic foreign body is seen at the dermal surface in the soft tissues of the right chin. -- Blood cultures pending Wound cultures pending Continue empiric Vanco, cefepime, Flagyl Appreciate ophthalmology, maxillofacial surgery Plan for I&D left upper eyelid Needs follow-up with ophthalmology, maxillofacial surgery upon discharge Gentle IV fluids while NPO GERD stable off maintenance medications Hyperglycemia HbA1C: 4.9 DVT Px: SCDs for now Code Status Full code Admission and Anticipated Discharge Date Admission Date: May 15, 2023 Subjective Patient is seen and examined at bedside States having Left eyelid swelling, Periorbital pain Denies any chest pain, Dyspnea, dizziness, nausea, abd pain Discussed with patient's family at bedside No other complaints Review of Systems Review of Systems: All systems reviewed & are unremarkable except as noted in Subjective Physical Exam Physical Exam: Physical Exam: Vitals signs as noted above General Appearance:Moderately built and nourished, no apparent distress Head: normocephalic, Atraumatic Eyes: Left Eye lid swollen, conjunctival erythema, EOMI Neck: supple, Trachea midline Respiratory/Chest: Normal breath sounds, CTA, No accessory muscle use Cardiovascular: S1, S2, No murmur Abdomen/GI:Soft, Non tender, Bowel sounds present Extremities/Musculoskeletal:normal inspection, no edema Neurologic/Psych:AAOX3, grossly no focal neurological deficits Skin: normal color, warm Results & Data Results & Data Vital Signs (Past 12 Hours) Vital Signs Temp Pulse Resp BP Pulse Ox O2 Del Method 05/16/23 07:45 36.8 C 72 16 169/80 H 97 Room Air Laboratory Results Short CBC 05/15/23 Range/Units 16:19 WBC 14.32 H (4.8-10.8) K/ul Hgb 16.4 (14.0-18.0) g/dl Hct 47.9 (42.0-52.0) % Plt Count 398 (130-400) K/uL BMP 05/15/23 16:19 Sodium 138 Potassium 4.4 Chloride 106 Carbon Dioxide 26 BUN 13 Creatinine 0.98 Glucose 116 H Calcium 9.4 Liver Function 05/15/23 Range/Units 16:19 Total Bilirubin 0.4 (0.2-1.0) mg/dl AST 37 (13-39) U/L ALT 24 (7-52) U/L Alkaline Phosphatase 37 (34-104) U/L Albumin 3.6 (3.4-5.0) gm/dl
[2023-05-16] MEDS ORDERED: SODIUM CHLORIDE 0.9% 1000ML 1,000 ML IV ONE (13:10)
[2023-05-16] MEDS ORDERED: ONDANSETRON INJ 2 MG/ML 2 ML VIAL ONE (13:11)
[2023-05-16] MEDS ORDERED: PROPOFOL IV EMULSION 10 MG/ML 20 ML VIAL IV ONE ×2 (13:11→14:04)
[2023-05-16] MEDS ORDERED: LIDOCAINE 2% 2 ML VIAL/AMP(20MG/ML) INFIL ONE (13:11)
[2023-05-16] MEDS ORDERED: DEXAMETHASONE SOD INJ 4 MG/ML VIAL ONE (13:11)
[2023-05-16] MEDS ORDERED: fentaNYL citrate PF 100 MCG/2 ML VIAL ONE ×2 (13:12→13:37)
[2023-05-16] MEDS ORDERED: MIDAZOLAM HCL 1 MG/ML 2ML VIAL ONE (13:12)
--- NOTE | 2023-05-16 13:12 | History & Physical Bridge Note ---
Date of Service May 16, 2023 History & Physical Bridge Note I have examined the patient, reviewed the History & Physical and in the interval since the performance of the History & Physical I have noted the following changes of clinical significance: no changes noted OK for planed procedure
--- NOTE | 2023-05-16 13:13 | Anesthesiology Consultation ---
Date of Service May 16, 2023 Assessment & Plan Chart Review Chart Review: Acceptable Risk for Surgery Consults Requested none ASA ASA2 Proposed Anesthesia Anesthesia Type: General History Surgery Operation Date: 05/16/23 11:00 Proposed Procedures p Incision and Drainage Left Upper Eye Lid - Derick Greer DMD Height/Weight Height: 5 ft 9 in Weight: 124.1 kg Allergies Allergy/AdvReac Type Severity Reaction Status Date / Time No Known Allergies Allergy Verified 05/15/23 15:58 Medications Home Medications Medication Instructions Recorded Confirmed Last Taken No Known Home Medications 05/07/20 05/15/23 Unknown Active Medications Generic Name Dose Route Start Last Admin Trade Name Freq PRN Reason Stop Dose Admin Cefepime HCl 2,000 mg/ Syringe 20 mls @ 5 mls/min 05/16/23 01:00 05/16/23 07:48 IV 05/26/23 00:59 5 mls/min Q8H LION Administration Protocol Vancomycin HCl 1,250 mg/ 275 mls @ 200 mls/hr 05/16/23 12:00 05/16/23 12:23 Sodium Chloride IV 05/23/23 11:59 200 mls/hr Q12H LION Administration NPO Date Last Intake of Fluids: 05/16/23 Time Last Intake of Fluids: 00:00 Date Last Intake of Solids: 05/16/23 Time Last Intake of Solids: 00:00 Past Medical History Medical History No significant past medical history Past Family History Family History Other Family history non-contributory Social History Smoking Status: Never smoker tobacco type: smokeless tobacco Do You Dip or Chew Tobacco: Yes Hx Alcohol Use: Yes Alcohol type: beer alcohol intake frequency: holidays/special occasions only Hx Substance Use: Yes substance use type: marijuana Last Used Substance: Hours (ago) Physical Exam Vital Signs Last Vital Signs Temp 36.8 C 05/16/23 07:45 Pulse 72 05/16/23 07:45 Resp 16 05/16/23 07:45 BP 169/80 H 05/16/23 07:45 Pulse Ox 97 05/16/23 07:45 O2 Del Method Room Air 05/16/23 07:45 Testing Laboratory Results 05/15/23 16:19 05/15/23 16:19 Hemoglobin A1c 4.9 % (4.5-5.6) 05/15/23 16:19 05/15/23 20:27 Gram Stain - Final Eye,Left Wound Culture - Preliminary Pin-point growth present, reincubating.
[2023-05-16] MEDS ORDERED: ATROPINE SULFATE 0.1 MG/ML 10ML SYR IV PRN (13:14)
[2023-05-16] MEDS ORDERED: fentaNYL citrate PF 100 MCG/2 ML VIAL IV PRN (13:14)
[2023-05-16] MEDS ORDERED: ePHEDrine sulfate 50 MG/ML AMP IV PRN (13:14)
[2023-05-16] MEDS ORDERED: ONDANSETRON INJ 2 MG/ML 2 ML VIAL IV PRN (13:14)
[2023-05-16] MEDS ORDERED: HYDROmorphone INJ 2 MG/ML SYR/VIAL IV PRN (13:14)
[2023-05-16] MEDS ORDERED: PROMETHAZINE HCL 12.5 MG in SODIUM CHLORIDE 0.9% 50 ML IV PRN (13:14)
[2023-05-16] MEDS ORDERED: BUPIVACAINE/EPINEPHRINE 0.5% 1:200,000 1.8 ML CARP ONE (13:15)
[2023-05-16] MEDS ORDERED: BACITRACIN/POLYMYX B OPH OINT 3.5 GM TUBE OPL ONE (13:30)
[2023-05-16] MEDS ORDERED: LIDOCAINE 1% LOCAL 20 ML VIAL ONE (13:37)
--- NOTE | 2023-05-16 13:46 | Pharmacy Report ---
Pharmacy PK ABX Note - Date of Service May 16, 2023 - Assessment and Plan Assessment 42 year old M receiving vancomycin and cefepime for treatment of periorbital. Patient refused lab draws today. Did discuss challenges of dosing vanc if this were to continue with the provider. Also added on metronidazole for anaerobic coverage. Day # 1 of antimicrobial therapy. Plan Vancomycin * Loading dose: 2500 mg IV x 1 (already administered) * Maintenance dose: 1500 mg IV every 12 hours * Regimen is predicted to achieve target AUC/ROBBIN of 400-600 mg/L.hr * Level will be ordered in next 24-48 hours if therapy is to continue. Pharmacy will continue to follow and will adjust dose/frequency as necessary. Thank you. Pharmacy has transitioned to AUC monitoring for vancomycin. AUC/ROBBIN is the preferred PK/PD target and is associated with decreased risk of nephrotoxicity compared to traditional trough targets.
[2023-05-16] MEDS ORDERED: ARTIFICIAL TEARS OP OINT 3.5 GM TUBE ONE (13:47)
[2023-05-16] MEDS ORDERED: STERILE IRRIGATING OPTH SOLUTION (BSS) 15ML ONE (13:51)
[2023-05-16] MEDS ORDERED: metroNIDAZOLE 500 MG/100 ML BAG IV SCH (14:00)
--- NOTE | 2023-05-16 14:27 | Post Operative Brief Note ---
PG Immediate Post Op with CF Date of Surgery May 16, 2023 Pre & Post Diagnosis Operation Date: 05/16/23 11:00 Pre-Op Diagnosis: Periorbital cellulitis, Abscess of left upper eyelid Post-Op Diagnosis: Periorbital cellulitis, Abscess of left upper eyelid I identified the patient and participated in the time-out.: Yes Procedure Operation Date: 05/16/23 11:00 Actual Procedures p Incision and Drainage Left Upper Eye Lid(Left) - Derick Greer DMD Surgeon Dercik Greer, MALINI [employer] Operations Manager none Estimated Blood Loss 1 Findings Consistent with Post-Op Diagnosis abscess upper left eye lid Specimens Specimen Description: 1. Drainage from preciptal abscess of left eye Anesthesia Type General Complications none
--- NOTE | 2023-05-16 15:14 | Discharge Summary ---
Date of Service May 16, 2023 Admission HPI Per Admitting Provider History obtained from patient, family, and records. Medical history significant for GERD, chronic back pain. Last confinement 2013 for exudative tonsillopharyngitis status post antibiotic Rx. 5 days ago, patient noted left upper eyelid swelling. Possible injury after getting into some bushes while kayaking with girlfriend. Progressive painful left upper eyelid swelling with purulent drainage noted at home. Vision problems from not being able to fully open left eye. No headache, no chest pain, no SOB. IV Unasyn administered at the ER. Medical History as above Surgical History : Left knee surgery Family History : No DM, no hypertension Personal/Social history : Non-smoker, occasional EtOH intake, forestry tree pruner Admission Exam Per Admitting Provider GENERAL: Comfortable, pleasant, morbidly obese, no respiratory distress SKIN: Normal color, warm HEENT: Leupp palpebral conjunctivae, L ptosis secondary to tender left upper eyelid swelling, moist buccal mucosa NECK : Supple, short neck, no tenderness CHEST : CTA, no tenderness HEART : RRR, no obvious murmurs ABDOMEN: Some distention, nontender EXTREMITIES : No LE swelling/tenderness, no other conspicuous deformities noted NEUROLOGIC : Coherent, no facial asymmetry, no other gross focality Principal Diagnosis Periorbital cellulitis Left upper eyelid preseptal cellulitis with abscess Discharge Data Allergies Allergy/AdvReac Type Severity Reaction Status Date / Time No Known Allergies Allergy Verified 05/15/23 15:58 Consultations 05/15/23 19:53 ED Decision to Admit Stat 05/15/23 20:43 Consult Oromaxillofacial Surgery Routine 05/16/23 08:29 Consult Ophthalmology Routine Procedures Performed Operation Date: 05/16/23 11:00 Actual Procedures p Incision and Drainage Left Upper Eye Lid(Left) - Derick Greer DMD Laboratory Results WBC 14.32 K/ul (4.8-10.8) H 05/15/23 16:19 RBC 5.35 M/uL (4.70-6.10) 05/15/23 16:19 Hgb 16.4 g/dl (14.0-18.0) 05/15/23 16:19 Hct 47.9 % (42.0-52.0) 05/15/23 16:19 MCV 89.5 fL (80.0-100.0) 05/15/23 16:19 MCH 30.7 pg (25.0-34.0) 05/15/23 16:19 MCHC 34.2 g/dL (32.0-36.0) 05/15/23 16:19 RDW Std Deviation 51.8 fL (36.4-46.3) H 05/15/23 16:19 RDW Coeff of Mariano 15.9 % (11.5-14.5) H 05/15/23 16:19 Plt Count 398 K/uL (130-400) 05/15/23 16:19 MPV 9.3 fL (9.4-12.4) L 05/15/23 16:19 Immature Gran % (Auto) 1.0 % 05/15/23 16:19 Neut % (Auto) 72.5 % 05/15/23 16:19 Lymph % (Auto) 14.7 % 05/15/23 16:19 [place] % (Auto) 9.4 % 05/15/23 16:19 Eos % (Auto) 1.7 % 05/15/23 16:19 Baso % (Auto) 0.7 % 05/15/23 16:19 Neut # (Auto) 10.38 K/uL (1.40-6.50) H 05/15/23 16:19 Lymph # (Auto) 2.10 K/uL (1.2-3.4) 05/15/23 16:19 [place] # (Auto) 1.34 K/uL (0.11-0.59) H 05/15/23 16:19 Eos # (Auto) 0.25 K/uL (0-0.50) 05/15/23 16:19 Baso # (Auto) 0.10 K/uL (0-0.2) 05/15/23 16:19 Immature Gran # (Auto) 0.15 K/uL (0.01-0.20) 05/15/23 16:19 Sodium 138 mmol/L (136-145) 05/15/23 16:19 Potassium 4.4 mmol/L (3.5-5.1) 05/15/23 16:19 Chloride 106 mmol/L (98-107) 05/15/23 16:19 Carbon Dioxide 26 mmol/L (21-32) 05/15/23 16:19 Anion Gap 6 (3-11) 05/15/23 16:19 BUN 13 mg/dl (6-23) 05/15/23 16:19 Creatinine 0.98 mg/dl (0.6-1.4) 05/15/23 16:19 Est Cr Clr Drug Dosing 129.1 ml/min 05/15/23 16:19 Est GFR ( Amer) 111.3 ml/min 05/15/23 16:19 Est GFR (Non-Af Amer) 96.1 ml/min 05/15/23 16:19 BUN/Creatinine Ratio 13.3 (10-20) 05/15/23 16:19 Glucose 116 mg/dl (70-99(Fasting)) H 05/15/23 16:19 Estimat Average Glucose 94 mg/dl 05/15/23 16:19 Hemoglobin A1c 4.9 % (4.5-5.6) 05/15/23 16:19 Calcium 9.4 mg/dl (8.6-10.3) 05/15/23 16:19 Total Bilirubin 0.4 mg/dl (0.2-1.0) 05/15/23 16:19 AST 37 U/L (13-39) 05/15/23 16:19 ALT 24 U/L (7-52) 05/15/23 16:19 Alkaline Phosphatase 37 U/L (34-104) 05/15/23 16:19 Total Protein 6.8 gm/dl (6.0-8.3) 05/15/23 16:19 Albumin 3.6 gm/dl (3.4-5.0) 05/15/23 16:19 Globulin 3.2 gm/dl (2.5-4.0) 05/15/23 16:19 Albumin/Globulin Ratio 1.1 (0.9-2) 05/15/23 16:[address] 05/15/23 16:01 CT SCAN OF THE FACIAL BONES WITH IV CONTRAST CLINICAL HISTORY: Left left eye infection. Blepharitis. COMPARISON STUDY: No priors. TECHNIQUE: High-resolution CT scan of the facial bones is performed following the IV administration of 80 cc of Optiray 320. Images are reviewed in the axial, sagittal, and coronal planes. IV contrast was administered without complication. A dose lowering technique was utilized adhering to the principles of ALARA. FINDINGS: The skeletal structures are well mineralized. There is no evidence of facial bone fracture. The bony orbits are intact and the orbital contents are within normal limits. The zygomatic arches, nasal bones, and pterygoid plates are preserved. The maxilla and mandible are intact. There are no layering blood products within the paranasal sinuses. There is near-complete opacification of the left maxillary antrum. There is moderate to advanced mucosal thickening within the left ethmoid sinuses. Mild mucosal thickening is noted in the right maxillary antrum, the right ethmoid sinuses, the frontal sinuses, and the sphenoid sinuses. The left ostiomeatal complex is occluded. The right ostiomeatal complex is significantly narrowed by mucosal thickening. The mastoid air cells are well pneumatized. The visualized calvarium and upper cervical spine are maintained. Partially imaged brain parenchyma is within normal limits. The developmental venous anomaly is incidentally noted in the left frontal lobe. A tiny metallic foreign body seen at the dermal surface in the soft tissues the right chin on axial image #139. There is left periorbital soft tissue edema consistent with cellulitis. There is also mild mild left premalar and supraorbital soft tissue edema. A small phlegmon/developing abscess is suggested in the region of the left palpebra on image #108. This measures 1.2 x 0.9 cm. IMPRESSION: 1. There is evidence of left orbital/periorbital cellulitis as above. 2. There is a 1.2 cm left palpebral phlegmon/developing abscess. 3. Orbital contents are normal as imaged. 4. Pansinus disease as above, greatest in the left maxillary antrum. 5. No acute facial bone abnormality is seen. 6. A tiny metallic foreign body is seen at the dermal surface in the soft tissues of the right chin. ACT 112: Negative or not required by law. Electronically signed by: Ventura Vela M.D. 05/15/2023 6:27 PM Ordered Studies 05/15/23 16:01 CT facial bones w con Stat Hospital Course (1) Periorbital cellulitis: Periorbital cellulitis Left upper eyelid preseptal cellulitis with abscess Likely secondary to trauma Facial right chin metallic foreign body --Face CT:There is evidence of left orbital/periorbital cellulitis as above. There is a 1.2 cm left palpebral phlegmon/developing abscess. Orbital contents are normal as imaged. Pansinus disease as above, greatest in the left maxillary antrum. No acute facial bone abnormality is seen. A tiny metallic foreign body is seen at the dermal surface in the soft tissues of the right chin. -- Blood cultures pending Wound cultures pending S/P Incision and Drainage Left Upper Eye Lid by on 05/16/23 Continue empiric Vanco, cefepime, Flagyl Appreciate ophthalmology, maxillofacial surgery Plan for I&D left upper eyelid Needs follow-up with ophthalmology, maxillofacial surgery upon discharge Gentle IV fluids while NPO GERD stable off maintenance medications Hyperglycemia HbA1C: 4.9 DVT Px: SCDs for now Code Status Full code Disposition Home Total Time Total Time Spent Total Time Spent (In Minutes): 55 minutes Discharge Plan Discharge Items Patient Disposition: Home - Self-Care Reason For Visit: preseptal abscess Discharge Diagnosis: Upper eye lid abscess Condition on Discharge: Good Activity: Resume your previous activity Lifting: Gradually increase as tolerated Bathing: Keep incision dry Bathing Comment: please keep eye patch on for 24 hours Exercise/Sports: Gradually increase as tolerated Driving/Machine Use: Resume 1 day after discharge Weightbearing: Full weightbearing Non-emergency contact: Primary Care Provider, Surgeon and Branch Operation Evaluation Manager Call non-emergency contact if: you have any medication questions, your symptoms worsen, your pain is concerning for you, you have a fever, your wound has increased redness, your wound has increased drainage and your wound pain has increased Follow-up/Referrals: Chris Willoughby MD [Primary Care Provider] - Derick Greer DMD [Physician] - Diet: Regular Addtl Attending Provider Instructions: ADDITIONAL ACTIVITY RECOMMENDATIONS: * it is very important to keep well hydrated, this prevents fever. * keep eye patch on left eye for 24 hours * once removed keep warm compress on the eye to keep it moist and prevent dryness and scabbing * after you clean your eye--pat it dry and apply the antibiotic eye ointment do this 3 x a day and before bed--use until tube is completed--only a small amount is necessary SPECIAL CARE INSTRUCTIONS: *It is not uncommon that between day 2-4 that your swelling will be at its worst this is very normal, do not be alarmed. * After 36 hours, apply heat (hot water bottle or heating pad) for the next two days, as often as possible. * Some swelling is common. It should gradually decrease within 4-5 days. * A certain amount of bleeding is to be expected. It is often possible to control mild oozing by placing folded gauze over the area and héctor hold for 30 minutes. If you are unable to control excessive bleeding, call Dr Greer at [phone] * You may experience some discomfort for a few days. If pain or swelling increases, Call Dr Greer * Return to the office for a follow up check up on: May 25 at 4:15 for follow up * [facility] # [phone] Addtl Manager Of Environmental Services Provider Instructions: Follow-up with your primary care physician Dr. Willoughby in 1 week Follow-up with your pals specialist Dr. Rehman as advised Follow-up with your Oromaxillary surgery on May 25 at 4:15 PM as scheduled. --- Your wound, blood cultures are pending at the time of discharge. Follow-up with your physician for results. --Complete the antibiotic course as prescribed. Seek immediate medical attention if your symptoms reoccur or worsen Please take all medications as instructed on discharge list below. Please call if you have any questions or problems. You can reach a [facility] hospitalist on duty at [facility] 24 hours a day by calling [phone] Pending Studies at Discharge: Yes Studies:: C and S from drainage Stand-Alone Forms: My [facility], Smoking Cessation Medications and DC Order Prescriptions: Continued ketorolac 10 mg tablet 10 mg PO QID 3 Days Qty: 12 0RF amoxicillin-pot clavulanate 875-125 mg tablet 1 tab PO Q12H Qty: 20 0RF Discharge Orders: Discharge Order (Routine); Ordered 05/16/23 Ordered By: Derick Henson/Other Patient Handouts: ED Periorbital Cellulitis, ED Sty Admission Data Admit Date/Time: 05/15/23 20:39 Attending Provider: Pradip Lizarraga Admit Provider: Aristides Regan Primary Care Provider: Chris Willoughby Other Providers: Derick Greer ; Aristides Regan ; Skyler Rehman
--- NOTE | 2023-05-16 16:22 | Anesthesiology Progress Note ---
Date of Service May 16, 2023 Anesthesia Post Procedure Vital Signs Vital Signs: Temp Pulse Pulse Resp BP Pulse Ox O2 Del Method 05/16/23 15:18 37 C 73 22 137/80 93 05/16/23 14:50 73 22 137/80 93 Room Air 05/16/23 14:40 37 C 75 22 156/90 H 94 Room Air 05/16/23 14:30 77 20 141/84 H 95 Oxymask 05/16/23 14:20 79 21 137/81 98 Oxymask 05/16/23 14:14 36.5 C 83 20 153/67 H 97 Oxymask 05/16/23 07:45 36.8 C 72 16 169/80 H 97 Room Air 05/15/23 22:20 36.7 C 77 18 132/75 98 Room Air 05/15/23 20:52 85 18 138/101 H 97 Room Air 05/15/23 16:50 78 20 141/78 H 96 Room Air 05/15/23 16:50 100 Room Air O2 Flow Rate 05/16/23 15:18 05/16/23 14:50 05/16/23 14:40 05/16/23 14:30 2 05/16/23 14:20 4 05/16/23 14:14 6 05/16/23 07:45 05/15/23 22:20 05/15/23 20:52 05/15/23 16:50 05/15/23 16:50 Pain Intensity Left Eye: Pain Intensity: 8 Transfer of Care Handoff Completed per policy Notes Mental Status: alert / awake / arousable and participated in evaluation Patient Amnestic to Procedure: Yes Nausea / Vomiting: adequately controlled Pain: adequately controlled Airway Patency, RR, SpO2: stable & adequate BP & HR: stable & adequate Hydration State: stable & adequate Anesthetic Complications: no major complications apparent
== END 2023-05-16 15:28 | disposition home or self-care (01) | DRG 603 ==
LOC: ED 14:50 → SUATTDRO 20:39 → 3E 20:39
DX: M54.9 Dorsalgia, unspecified; X58.XXXA Exposure to other specified factors, initial encounter; H00.034 Abscess of left upper eyelid; L03.213 Periorbital cellulitis; K21.9 Gastro-esophageal reflux disease without esophagitis; S00.85XA Superficial foreign body of other part of head, initial encounter; G89.29 Other chronic pain; R73.9 Hyperglycemia, unspecified